=== PATIENT | female | born 1960 | race Caucasian/White ===

== ENCOUNTER 2024-05-19 15:27 | Inpatient (IN) | payer MEDICAID ==
[2024-05-19] MEDS ORDERED: Morphine 2 MG/ML VIAL ONE (16:51)
[2024-05-19 18:56] LABS: ALT (SGPT) 14 U/L (8-55); AST (SGOT) 19 U/L (5-34); Albumin 3.9 g/dL (3.4-4.8); Alkaline Phosphatase 89 U/L (40-110); Anion Gap 13 mmol/L (10-20); BUN (Urea Nitrogen) 15 mg/dL (9.8-20.1); Bilirubin, Total 0.3 mg/dL (0.2-1.2); Calc. Creatinine Clearance 0 mL/min (70-130); Calcium 9.3 mg/dL (7.8-10.44); Carbon Dioxide 22 mmol/L (23-31); Chloride 108 mmol/L (98-107); Estimated GFR 85; Globulin 3.4 g/dL (2.4-3.5); Glucose 136 mg/dL (80-115); Protein, Total 7.3 g/dL (5.8-8.1); Sodium 139 mmol/L (136-145)
[2024-05-19] MEDS ORDERED: Morphine 4 MG/ML VIAL ONE (18:57)
[2024-05-19] MEDS ORDERED: Ondansetron PF 4 MG/2 ML Vial ONE (18:57)
[2024-05-19 19:42] LABS: #Basophils 0.03 10x3/uL (0.0-0.2); #Eosinophils Less than 0.03 10x3/uL (0.0-0.7); %Basophils 0.3 % (0.0-1.0); %Eosinophils 0.1 % (0.0-10.0); %Lymphocytes 12.5 % (21.0-51.0); %Neutrophils 82.7 % (42.0-75.0); Hematocrit 40.1 % (36.0-47.0); Hemoglobin 14.1 g/dL (12.0-16.0); Mean Corpuscular HGB CONC 35.2 g/dL (32.0-36.0); Mean Corpuscular Hemoglobin 31.6 pg (27.0-31.0); Mean Corpuscular Volume 89.9 fL (78.0-98.0); Mean Platelet Volume 9.5 fL (7.4-10.4); Platelet Count 134 10x3/uL (130-400); Red Blood Cell (RBC) Count 4.46 mill/uL (4.20-5.40)
[2024-05-19] MEDS ORDERED: Ondansetron PF 4 MG/2 ML Vial IVP PRN (20:33)
[2024-05-19] MEDS ORDERED: Ipratropium/Albuterol 3 ML NEB NEB PRN (20:33)
[2024-05-19] MEDS ORDERED: traMADol HCl 50 MG TAB PO PRN (20:36)
[2024-05-19] MEDS ORDERED: Ketorolac Tromethamine 30 MG (1 mL) VIAL IVP SCH ×2 (20:45→23:59)
[2024-05-19] MEDS: Methocarbamol 500 MG TAB PO PRN (21:47)
[2024-05-19] MEDS: Senokot S 8.6-50 MG TAB PO SCH (21:48)
[2024-05-19] MEDS: Famotidine/PF 20 mg/2ml Vial SLOW IVP SCH (21:48)
[2024-05-19] MEDS: Morphine 2 MG/ML VIAL SLOW IVP PRN (23:38)
[2024-05-19] MEDS: Acetaminophen 500 MG TAB PO SCH (23:39)
[2024-05-19] MEDS ORDERED: Acetaminophen 325 MG TAB PO SCH (23:59)
[2024-05-19] MEDS ORDERED: traMADol HCl 50 MG TAB PO SCH (23:59)
[2024-05-20 05:46] LABS: #Basophils 0.03 10x3/uL (0.0-0.2); %Basophils 0.5 % (0.0-1.0); %Eosinophils 0.8 % (0.0-10.0); %Lymphocytes 24.8 % (21.0-51.0); %Monocytes 8.7 % (0.0-10.0); Hematocrit 34.8 % (36.0-47.0); Hemoglobin 12.1 g/dL (12.0-16.0); Mean Corpuscular HGB CONC 34.8 g/dL (32.0-36.0); Mean Corpuscular Hemoglobin 31.4 pg (27.0-31.0); Mean Corpuscular Volume 90.4 fL (78.0-98.0); Mean Platelet Volume 9.8 fL (7.4-10.4); Platelet Count 123 10x3/uL (130-400); RBC Distribution Width 12.9 % (11.5-14.5); Red Blood Cell (RBC) Count 3.85 mill/uL (4.20-5.40)
[2024-05-20 05:50] LABS: INR-International Normal Ratio 1.1; Prothrombin Time 14.2 sec (12.0-14.7)
[2024-05-20 05:51] LABS: Anion Gap 10 mmol/L (10-20); BUN (Urea Nitrogen) 16 mg/dL (9.8-20.1); Calc. Creatinine Clearance 111 mL/min (70-130); Calcium 8.5 mg/dL (7.8-10.44); Carbon Dioxide 24 mmol/L (23-31); Chloride 106 mmol/L (98-107); Estimated GFR 97; Glucose 118 mg/dL (80-115); PTT 32.8 sec (22.9-36.1); Potassium 3.6 mmol/L (3.5-5.1); Sodium 136 mmol/L (136-145)
[2024-05-20] MEDS: Polyethylene Glycol 3350 17 GM Packet PO SCH (08:40)
[2024-05-20] MEDS ORDERED: Clindamycin/D5W 900 mg/50 ml Premix Bag ONE (09:29)
[2024-05-20] MEDS ORDERED: PROPOFOL 20 ML ONE (10:05)
[2024-05-20] MEDS ORDERED: Ondansetron PF 4 MG/2 ML Vial ONE (10:05)
[2024-05-20] MEDS ORDERED: Lidocaine 1% PF 5 ML VIAL ONE (10:05)
[2024-05-20] MEDS ORDERED: Rocuronium Bromide 10 MG/ML (10ML VIAL) ONE (10:06)
[2024-05-20] MEDS ORDERED: Esmolol 100 MG/10 ML VIAL ONE (10:47)
[2024-05-20] MEDS ORDERED: Tranexamic Acid 1,000 MG/10 ML VIAL ONE (11:06)
[2024-05-20] MEDS ORDERED: SUGAMMADEX SODIUM 200 MG/2 ML VIAL ONE ×2 (11:27→11:31)
[2024-05-20] MEDS ORDERED: fentaNYL PF 100 MCG/2 ML SYRINGE ONE (12:00)
[2024-05-20] MEDS ORDERED: Morphine 4 MG/ML VIAL ONE (12:15)
[2024-05-20] MEDS ORDERED: Morphine 2 MG/ML VIAL ONE ×4 (12:24→13:01)
[2024-05-20] MEDS ORDERED: Ondansetron PF 4 MG/2 ML Vial IVP PRN (12:58)
[2024-05-20] MEDS ORDERED: Milk Of Magnesia 30 ML UDCUP PO PRN (12:58)
[2024-05-20] MEDS ORDERED: Benzocaine/Menthol 1 LOZ LOZ PO PRN (12:58)
[2024-05-20] MEDS ORDERED: Ondansetron ODT 4 MG TAB PO PRN (12:58)
[2024-05-20] MEDS ORDERED: Ketorolac Tromethamine 30 MG (1 mL) VIAL IVP PRN (12:58)
[2024-05-20] MEDS ORDERED: Bisacodyl 10 MG SUPP PR PRN (12:58)
[2024-05-20] MEDS ORDERED: Fleet Saline Enema 133 ML BOT PR PRN (12:58)
[2024-05-20] MEDS: HYDROcodone/Acetaminophen 5/325 mg Tablet PO PRN (16:01)
[2024-05-20] MEDS: Clindamycin/D5W 900 MG in Premix 1 BAG IVPB SCH (17:25)
[2024-05-20] MEDS: Acetaminophen 325 MG TAB PO SCH (18:52)
[2024-05-20] MEDS: Famotidine 20 MG TAB PO SCH (21:27)
[2024-05-20] MEDS: Senokot S 8.6-50 MG TAB PO SCH (21:29)
[2024-05-21 06:25] LABS: Hematocrit 30.5 % (36.0-47.0); Hemoglobin 10.4 g/dL (12.0-16.0)
[2024-05-21 06:27] LABS: Hematocrit 30.6 % (36.0-47.0); Hemoglobin 10.4 g/dL (12.0-16.0); Mean Corpuscular Volume 91.3 fL (78.0-98.0); Mean Platelet Volume 9.9 fL (7.4-10.4); Platelet Count 102 10x3/uL (130-400); RBC Distribution Width 12.9 % (11.5-14.5); Red Blood Cell (RBC) Count 3.35 mill/uL (4.20-5.40)
[2024-05-21] MEDS: Sodium Chloride 0.45% 1,000 ML IV SCH (08:10)
[2024-05-21] MEDS: Multivitamin W/ Minerals 1 TAB PO SCH (09:01)
[2024-05-21] MEDS: Lactated Ringer's 1,000 ML IV SCH (09:02)
[2024-05-21] MEDS: Ferrous Gluconate 324 MG TAB PO SCH (09:02)
[2024-05-21] MEDS: Ibuprofen 600 MG TAB PO SCH (09:02)
[2024-05-21] MEDS: Lactulose 20 GM (30 mL) UDCUP PO SCH (09:26)
[2024-05-21] MEDS: Enoxaparin 40 MG (0.4 mL) SYRINGE SC SCH (20:17)
[2024-05-22] MEDS: Loperamide HCl 2 MG CAP PO PRN (01:00)
[2024-05-22 07:10] LABS: Hematocrit 26.6 % (36.0-47.0); Hemoglobin 9.1 g/dL (12.0-16.0); Mean Corpuscular HGB CONC 34.2 g/dL (32.0-36.0); Mean Corpuscular Hemoglobin 31.6 pg (27.0-31.0); Mean Corpuscular Volume 92.4 fL (78.0-98.0); Mean Platelet Volume 10.2 fL (7.4-10.4); Platelet Count 105 10x3/uL (130-400); Red Blood Cell (RBC) Count 2.88 mill/uL (4.20-5.40)
[2024-05-23 05:25] LABS: Hematocrit 26.6 % (36.0-47.0); Mean Corpuscular HGB CONC 33.8 g/dL (32.0-36.0); Mean Corpuscular Hemoglobin 31.4 pg (27.0-31.0); Mean Corpuscular Volume 92.7 fL (78.0-98.0); Mean Platelet Volume 9.8 fL (7.4-10.4); Platelet Count 124 10x3/uL (130-400); RBC Distribution Width 13.1 % (11.5-14.5); Red Blood Cell (RBC) Count 2.87 mill/uL (4.20-5.40)
[2024-05-23] MEDS: Cholecalciferol (Vitamin D3) 400 UNITS TAB PO SCH (09:04)
[2024-05-23 17:10] VITALS: BP 111/66; TEMP 98.5
== END 2024-05-23 17:37 | disposition home or self-care (01) | DRG 482 ==
LOC: ERS 15:27 → SURG A 19:31
PROVIDERS: ADMIT Specialist; ATTEND Specialist
PROC: 0QS604Z Reposition Right Upper Femur with Internal Fixation Device, Open Approach (ICD-10-PCS; principal; 2024-05-20)
DX: S72.141A Displaced intertrochanteric fracture of right femur, initial encounter for closed fracture (principal); W18.30XA Fall on same level, unspecified, initial encounter; Z88.0 Allergy status to penicillin; Z91.041 Radiographic dye allergy status; Z88.2 Allergy status to sulfonamides; Z88.8 Allergy status to other drugs, medicaments and biological substances; Z90.49 Acquired absence of other specified parts of digestive tract; Z90.710 Acquired absence of both cervix and uterus; Z79.899 Other long term (current) drug therapy; Z79.82 Long term (current) use of aspirin
CPT/HCPCS: 36415; 36416; 70450; 71045; 72170; 80048; 80053; 82306; 85014; 85018; 85025; 85027; 85610; 85730; 86850; 86900; 86901; 93005; 96374; 96375; 96376; C1713; J1650; J2272; J2405; J2704; J3490; J7120